=== PATIENT | female | born 1960 | race Caucasian/White ===

== ENCOUNTER 2022-05-21 09:53 | Outpatient (CLI) | payer BC ==
[~2022-05-21 09:53] MED LIST: DIPHENHYDRAMINE INJ 50 MG/ML VIAL ONE; MIDAZOLAM HCL 5 MG/5 ML VIAL ONE
[2022-05-21] MEDS ORDERED: MEPERIDINE 100 MG INJ. 100 MG/ML VIAL ONE (10:47)
[2022-05-21] MEDS ORDERED: MIDAZOLAM HCL 5 MG/5 ML VIAL ONE (10:48)
== END 2022-05-21 16:00 | disposition home or self-care (01) ==
LOC: SCT 09:53
PROVIDERS: ATTEND Internal Medicine
DX: R94.5 Abnormal results of liver function studies (principal); R79.89 Other specified abnormal findings of blood chemistry
CPT/HCPCS: 47000; 77012; 88307; 88313; J1200; J2250; J2175; 76376